=== PATIENT | female | born 1995 | race Caucasian/White ===

== ENCOUNTER 2019-04-11 08:45 | Inpatient (IN) | payer SELFPAY ==
[~2019-04-11] VITALS: Ht 162.6 cm; Wt 53.5 kg
[2019-04-11 10:04] LABS: BASOPHIL % 0.3 % (0-2); PLATELET COUNT 256 x10^3mcL (130-400); RED CELL DISTRIBUTION WIDTH 13.4 % (11.5-14.5)
[2019-04-11 11:01] LABS: ALBUMIN 3.6 g/dL (3.4-5.0); ALKALINE PHOSPHATASE 163 U/L (46-116); ALT/SGPT 39 U/L (14-59); AST/SGOT 18 U/L (15-37); BILIRUBIN TOTAL 0.3 mg/dL (0.20-1.00); CALCIUM 9.1 mg/dL (8.5-10.1); CARBON DIOXIDE 24.2 mmol/L (21-32); CHLORIDE SERUM 105 mmol/L (98-107); CREATININE SERUM 0.4 mg/dL (0.6-1.0); GFR1 > 60 mL/min; GLUCOSE SERUM 106 mg/dL (74-106); POTASSIUM SERUM 3.5 mmol/L (3.5-5.1); SODIUM SERUM 140 mmol/L (136-145)
[2019-04-11 11:18] LABS: TOTAL PROTEIN, SERUM 7.1 g/dL (6.4-8.2)
[2019-04-11 12:47] LABS: MAGNESIUM 1.5 mg/dL (1.8-2.4); PHOSPHOROUS 3.8 mg/dL (2.5-4.9)
[2019-04-11 12:54] LABS: CHOLESTEROL/HDL RATIO 3.1
[2019-04-11 13:29] VITALS: BP 124/69
[2019-04-11 13:35] VITALS: Ht 162.6 cm; Wt 53.5 kg
[2019-04-11 16:08] LABS: microscopic required? YES; urine erythrocyte TRACE (NEGATIVE)
[2019-04-11 16:15] VITALS: BP 126/63
[2019-04-11 20:41] VITALS: BP 125/72
[2019-04-12 05:46] VITALS: BP 100/43
[2019-04-12 06:07] LABS: BASOPHIL % 0.6 % (0-2); PLATELET COUNT 243 x10^3mcL (130-400); RED CELL DISTRIBUTION WIDTH 13.8 % (11.5-14.5)
[2019-04-12 06:21] LABS: CALCIUM 8.6 mg/dL (8.5-10.1); CARBON DIOXIDE 22.7 mmol/L (21-32); CHLORIDE SERUM 106 mmol/L (98-107); CREATININE SERUM 0.5 mg/dL (0.6-1.0); GFR1 > 60 mL/min; GLUCOSE SERUM 127 mg/dL (74-106); POTASSIUM SERUM 3.9 mmol/L (3.5-5.1); SODIUM SERUM 140 mmol/L (136-145)
[2019-04-12 08:33] VITALS: BP 109/57
[2019-04-12 09:52] VITALS: BP 109/57
== END 2019-04-12 10:50 | disposition home or self-care (01) | DRG 743 ==
LOC: ED 08:45 → MU 12:01
PROVIDERS: Emergency Medicine; Obstetrics & Gynecology; ADMIT Family Medicine
PROC: 0UT04ZZ Resection of Right Ovary, Percutaneous Endoscopic Approach (ICD-10-PCS; 2019-04-11)
PROC: 0UB14ZZ Excision of Left Ovary, Percutaneous Endoscopic Approach (ICD-10-PCS; 2019-04-11)
PROC: 0UT54ZZ Resection of Right Fallopian Tube, Percutaneous Endoscopic Approach (ICD-10-PCS; principal; 2019-04-11 16:30)
DX: N83.202 Unspecified ovarian cyst, left side (principal); R19.00 Intra-abdominal and pelvic swelling, mass and lump, unspecified site; E83.42 Hypomagnesemia
CPT/HCPCS: G0378; J1170; J2250; J2270; J2405; J3010; J3475; J3490; J7030